=== PATIENT | male | born 1970 | race Caucasian/White ===

== ENCOUNTER 2017-12-17 02:53 | Emergency (ER) | payer SELFPAY ==
[2017-12-17] MEDS ORDERED: Tdap Vaccine 0.5 ml Vial (10-64 yrs) IM ONE ×2 (03:43→03:59)
[2017-12-17] MEDS ORDERED: Lidocaine 1% Inj (20ml) INFIL ONE (03:43)
[2017-12-17] MEDS ORDERED: Lidocaine Hydrochloride 5 ML INJ ONE ×2 (04:05→04:06)
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
[2017-12-17] MEDS ORDERED: Bacitracin 500 Units/gm Oint Foilpak UD ONE (06:54)
[2017-12-17 07:31] VITALS: BP 117/72; PULSE 84; RESP 16; TEMP 97.8
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
[2017-12-19 22:36] VITALS: O2SAT 95
== END 2017-12-17 07:37 | disposition home or self-care (01) ==
LOC: C.ER 02:53
DX: S01.81XA Laceration without foreign body of other part of head, initial encounter (principal); S60.511A Abrasion of right hand, initial encounter; S80.212A Abrasion, left knee, initial encounter; S80.211A Abrasion, right knee, initial encounter; Y08.89XA Assault by other specified means, initial encounter